=== PATIENT | female | born 1995 | race African-American/Black ===

== ENCOUNTER 2019-03-26 22:15 | Emergency (ER) | payer OTHER ==
[~2019-03-26] VITALS: Ht 170.2 cm; Wt 59.0 kg
[2019-03-26 23:46] VITALS: BP 115/58
== END 2019-03-26 23:48 | disposition home or self-care (01) ==
LOC: M.ERS 22:15 → EDSEX 22:15 → M.ERS 23:48
DX: S30.1XXA Contusion of abdominal wall, initial encounter (principal); Z91.018 Allergy to other foods; W22.8XXA Striking against or struck by other objects, initial encounter; Y93.89 Activity, other specified; Y92.89 Other specified places as the place of occurrence of the external cause; Y99.8 Other external cause status